=== PATIENT | male | born 1950 | race Caucasian/White ===

== ENCOUNTER 2025-09-17 08:49 | Observation (INO) | payer OTHER ==
[2025-09-13 11:59] LABS: IMMATURE GRANULOCYTE ABSOLUTE 0.02 K/uL (0-1); NUCLEATED RED BLOOD CELLS 0.0 % (0.0-0.19); PLATELET COUNT (AUTO) 218 K/uL (130-400); RED BLOOD CELL COUNT(AUTO) 5.17 MIL/uL (4.50-6.20); RED CELL DISTRIBUTION WIDTH 12.6 % (11.0-15.5); WHITE BLOOD COUNT (AUTO) 5.8 K/uL (4.8-10.8)
[2025-09-13 12:09] LABS: APPEARANCE,URINE CLEAR (CLEAR); GLUCOSE, URINE (UA) >=1000 mg/dL (NEGATIVE); LEUKOCYTE ESTERASE ,URINE NEGATIVE Leu/uL (NEGATIVE); NITRATE,URINE NEGATIVE (NEGATIVE); OCCULT BLOOD,URINE NEGATIVE (NEGATIVE)
[2025-09-13 12:15] LABS: ADD UA MICROSCOPIC YES
--- NOTE | 2025-09-13 12:20 | NUR ---
RE: IS INITIAL IS INITIAL TEACHING DONE BY RT ELOISA DURING PREOP.
[2025-09-13 12:33] LABS: SQUAMOUS EPITHELIAL CELL,UR RARE /HPF (0-2)
[2025-09-13 17:11] VITALS: BP 106/55; PULSE 73; RESP 14; TEMP 97
[~2025-09-17] VITALS: Ht 177.8 cm; Wt 111.9 kg
[2025-09-17] VITALS (19 sets, daily range): BP systolic 105–155; BP diastolic 58–94; PULSE 52–101; RESP 14–20; TEMP 97.1–98.1; O2SAT 99
[2025-09-17] MEDS ORDERED: PROMETHAZINE HCL 25 MG/ML 1ML AMPULE IM PRN ×2 (10:30→19:00)
[2025-09-17] MEDS ORDERED: LIDOCAINE PF 100MG/5ML (2%) SYRINGE 5ML ONE (18:00)
[2025-09-17] MEDS ORDERED: MIDAZOLAM HCL 1 MG/ML 2ML VIAL ONE (18:01)
[2025-09-17] MEDS ORDERED: NEOSTIGMINE METHYLSULFATE 1MG/ML IV ONE (18:01)
[2025-09-17] MEDS ORDERED: GLYCOPYRROLATE 0.2 MG/ML 5 ML VIAL ONE (18:01)
--- NOTE | 2025-09-17 18:15 | OP ---
Operative Note: DATE OF PROCEDURE: 09/17/25 SURGEON: RUSTY MENEZES MD FULL TIME BABYSITTER: [Eve Cuadra CFA] ANESTHESIA: [General anesthesia plus regional block] ANESTHESIOLOGIST/OFFSET LITHOGRAPHIC PRESS OPERATOR: [[place] Delong CRNA] PREOPERATIVE DIAGNOSIS: [Left knee osteoarthritis] POSTOPERATIVE DIAGNOSIS: [Left knee osteoarthritis] IMPLANTS: [Biomet vanguard. Femur size 72.5 PS left. Tibia size 79 fixed cruciate. Tibial liner size 10 x 79/83 PS. Patella size 32 x 9 asymmetric] PROCEDURE: [Left total knee arthroplasty] ESTIMATED BLOOD LOSS: [100 mL] INDICATIONS: [The patient is a 75-year-old male with a history of pain to the left knee secondary to osteoarthritis that has been treated conservatively with no major improvement lately. The patient has been admitted for a total knee arthroplasty, procedure that he understood, risks, benefits and possible compli cations and agreed to sign the consent form.] DESCRIPTION OF PROCEDURE: [After adequate general anesthesia was achieved and regional block obtained the lower extremity was prepped and draped in the usual manner previous placement of the tourniquet in the proximal thigh. The extremity was then elevated and exsanguinated with an Esmarch bandage and the tourniquet inflated to 300 mmHg the Esmarch band been then removed. With the knee in flexion a longitudinal incision was then made in the anterior aspect through the skin followed by dissection of the subcutaneous tissue. A bone infusion needle was then inserted just medial to the tibial tuberosity and through this needle we injected into the bone a solution of normal saline 50 mL mixed with 500 mg of vancomycin. The needle was removed. A paramedian approach was then made with the Bovie cautery cutting through the quadriceps tendon, medial patellar retinaculum and patellar tendon retinaculum. The retropatellar tendon fat was then excised and the soft tissue elements of the tibia were elevated subperiosteally and retractors were applied medially and laterally . The anterior and posterior cruciate ligaments were resected. With the use of a drill a starting hole was made in the distal femur entering the intramedullary canal and then after removal of the drill an intramedullary guide was inserted with a 5 degree valgus block that touched the distal femur and to this the distal femoral cutting guide was then applied anteriorly and was secured to the distal femur with the use of pins. The intramedullary guide was then removed and with the use of the oscillating saw we proceeded to resect the distal femur removing the fragments and the guide. The femoral sizer was then applied distally and drill holes were made removing the sizer and the 4-in-1 cutting block was then inserted and the anterior, posterior and chamfer cuts were made removing the fragments and the block. The PS cutting guide was then inserted and the intercondylar cut was made removing the fragment and the guide. The posterior cruciate ligament retractor was then inserted posterior to the tibia and this was brought forward proceeding then to apply the external tibial alignment guide and secured the proximal cutting guide to the tibia with the use of pins. With the use of the oscillating saw the proximal cut to the tibia tibia was made. The bone fragment was removed and the trial tibia plate was chosen. At this point the menisci were removed sharply and with the use of the curved osteotome the posterior osteophytes of the femur were removed. The trial components were then inserted at the femur and tibia with a trial tibial liner bringing the knee into extension noticing that the patient had a very stable knee in flexion, extension and with valgus and varus stress. The knee was maintained in extension and the patella was then addressed proceeding to measure its thickness and then with the use of the oscillating saw we removed nine mm from the articular surface and restored the height with application of a trial component after 3 peg holes were made. The patellofemoral ligament was removed and then the patellofemoral tracking was checked noticing to be lateralized and tilted and for this reason a lateral retinacular release was performed bringing the tracking back to normal. At this moment all the components were removed, the tibia after the metaphyseal defect was created and while cement was being mixed on the back table we proceeded to irrigate the joint with antibiotic solution and then cover the entry to the femoral canal with a bone plug. Once the cement was ready we proceeded to apply it first to the tibia surface in serting the final component and then to the femoral surface and inserted the final component removing the excess cement and then applying a trial liner bringing the knee into extension for compression. Then we proceeded to irrigate the patella surface and dried it applying then bone cement and the final patellar component was inserted and was secured with application of a clamp. T he joint was irrigated with a warm diluted Betadine solution while the cement dried followed by irrigation with antibiotic solution. The trial liner was removed as well as the patellar clamp and we proceeded then to irrigate the posterior aspect of the joint to remove all the remaining debris and the final tibial liner was inserted and locked against the tibia. The range of motion was checked and noticed to be adequate with full extension and flexion, no laxity in valgus or varus stress and with adequate patellofemoral tracking. The patient had no anterior or posterior drawer. The tourniquet was then deflated and this was followed by hemostasis and the wound was then closed with approximation of the quadriceps tendon, patellar retinaculum and patellar tendon retinaculum with #1 Vicryl close stitches alternating with #1 Ethibond stitches, and closure of the subcutaneous tissue with 2-0 Monocryl inverted stitches and the skin was closed with 3-0 Monocryl subcuticularly. The wound was covered with a suction dressing followed by application of an Jerald bandage for compression and the drapes were then removed transferring the patient to the hospital bed and taken to recovery room for follow-up by anesthesia. There were no complications during the procedure.] RUSTY MENEZES MD Sep 17, 2025 18:15
[2025-09-17] MEDS ORDERED: TRANEXAMIC ACID 1000MG/10ML ONE (18:37)
[2025-09-17] MEDS ORDERED: VANCOMYCIN 500MG+NS 100ML 100 ML IV ONE (18:38)
[2025-09-17] MEDS: TRANEXAMIC ACID 1000MG/10ML IV ONE (18:38)
[2025-09-17] MEDS: VANCOMYCIN 500MG VIAL IJ ONE (18:50)
[2025-09-17] MEDS ORDERED: FERROUS FUMARATE 324 MG TABLET PO PRN (20:30)
[2025-09-17] MEDS ORDERED: CALCIUM CARB 500MG PO PRN (20:30)
[2025-09-17] MEDS: TRANEXAMIC ACID 1000MG/10ML ONE (21:11)
--- NOTE | 2025-09-17 22:00 | NUR ---
POST OP REPORT RECV'D, ARRIVED FROM PACU. VS STABLE, NEUROVASCULAR ASSESSMENT DONE. SCD'S PLACED. RATING PAIN A 5. ICE PLACED ON LT KNEE, HS MEDS TO BE GIVEN SCHEDULED TYLENOL AND CELEBREX PER MD ORDER. AT BEDSIDE. VLADIMIR DRESSING IN PLACE ALONG WITH MICHI WRAP. CLEAN/DRY AND INTACT. PT HUNGRY WILL START OFF SLOW TO PREVENT N/V, HE VERBALIZED UNDERSTANDING.
[2025-09-17] MEDS: 0.9%NACL 1000ML 1,000 ML IV ONE (22:05)
[2025-09-17] MEDS: ASPIRIN 81 MG EC TAB PO SCH (22:28)
[2025-09-17] MEDS: 0.9%NACL 1000ML 1,000 ML IV SCH (22:59)
[2025-09-18] VITALS (12 sets, daily range): BP systolic 101–163; BP diastolic 52–87; PULSE 69–112; RESP 16–20; TEMP 97.7–98.6; O2SAT 96
--- NOTE | 2025-09-18 08:13 | PN ---
Ortho postop day one. This morning the patient is awake alert and oriented. He is out of bed seated in a chair enjoying his breakfast. is present in the room. Reporting adequate pain control. No acute distress. Vital signs have remained stable. Afebrile. Voiding on his own. Laboratory results reviewed. Incentive spirometry reinforced. SCD stockings are currently present but not on since he is out of bed in a chair. He is provided a footstool and asked to alternate extension and flexion. Jerald bandage has been removed. There is ice present to the operative site. The carrie dressing is intact. Flashing green. Gastrocnemius soft nontender. Negative Homans. Distal neurovascular exam normal. He is pending physical therapy this morning. Operative findings discussed with the patient. Anticipated discharge goal is home health/PT Assessment: Status post left total knee arthroplasty. Plan: Continue Dr. Baez TKA protocol and discharge planning Vitals/Labs Vital Signs Date Time Temp Pulse Resp B/P (MAP) Pulse Ox O2 Delivery O2 Flow Rate FiO2 09/18/25 05:35 119/64 97 Nasal Cannula 2.0 09/18/25 04:00 98.1 108 18 09/17/25 23:05 32 Laboratory Tests 09/18/25 03:29 Medications Current Medications Cefazolin Sodium 2 gm STK-MED ONCE .ROUTE; Start 09/17/25 at 09:11; Stop 09/17/25 at 09:12; Status DC Sodium Chloride 1,000 ml @ As Directed STK-MED ONCE IV; Start 09/17/25 at 09:11; Stop 09/17/25 at 09:12; Status DC Ondansetron HCl 4 mg AD PRN IVP; Start 09/17/25 at 10:30; Stop 09/17/25 at 17:00; Status DC Metoclopramide HCl 10 mg AD PRN IVP; Start 09/17/25 at 10:30; Stop 09/17/25 at 17:00; Status DC Promethazine HCl 25 mg AD PRN IM; Start 09/17/25 at 10:30; Stop 09/17/25 at 17:00; Status DC Ketorolac Tromethamine 15 mg AD PRN IV; Start 09/17/25 at 10:30; Stop 09/17/25 at 17:00; Status DC Morphine Sulfate 2 mg AD PRN IVP; Start 09/17/25 at 10:30; Stop 09/17/25 at 17:00; Status DC Fentanyl Citrate 25 mcg Q5MIN PRN IVP; Start 09/17/25 at 10:30; Stop 09/17/25 at 17:00; Status DC Naloxone HCl 0.1 mg AD PRN IVP; Start 09/17/25 at 10:30; Stop 09/17/25 at 17:00; Status DC Lidocaine HCl 100 mg STK-MED ONCE .ROUTE; Start 09/17/25 at 18:00; Stop 09/17/25 at 18:01; Status DC Dexamethasone Sodium Phosphate 4 mg STK-MED ONCE .ROUTE; Start 09/17/25 at 18:01; Stop 09/17/25 at 18:01; Status DC Phenylephrine HCl 10 mg STK-MED ONCE IV; Start 09/17/25 at 18:01; Stop 09/17/25 at 18:01; Status DC Ondansetron HCl 4 mg STK-MED ONCE .ROUTE; Start 09/17/25 at 18:01; Stop 09/17/25 at 18:01; Status DC Glycopyrrolate 1 mg STK-MED ONCE .ROUTE; Start 09/17/25 at 18:01; Stop 09/17/25 at 18:01; Status DC Midazolam HCl 2 mg STK-MED ONCE .ROUTE; Start 09/17/25 at 18:01; Stop 09/17/25 at 18:01; Status DC Propofol 200 mg STK-MED ONCE IV; Start 09/17/25 at 18:01; Stop 09/17/25 at 18:01; Status DC Neostigmine Methylsulfate 10 mg STK-MED ONCE IV; Start 09/17/25 at 18:01; Stop 09/17/25 at 18:01; Status DC Rocuronium [place] 50 mg STK-MED ONCE .ROUTE; Start 09/17/25 at 18:01; Stop 09/17/25 at 18:02; Status DC Fentanyl Citrate 100 mcg STK-MED ONCE .ROUTE; Start 09/17/25 at 18:02; Stop 09/17/25 at 18:02; Status DC Ondansetron HCl 4 mg AD PRN IVP; Start 09/17/25 at 19:00; Stop 09/17/25 at 21:47; Status DC Metoclopramide HCl 10 mg AD PRN IVP; Start 09/17/25 at 19:00; Stop 09/17/25 at 21:47; Status DC Promethazine HCl 25 mg AD PRN IM; Start 09/17/25 at 19:00; Stop 09/17/25 at 21:47; Status DC Ketorolac Tromethamine 30 mg AD PRN IV; Start 09/17/25 at 19:00; Stop 09/17/25 at 21:47; Status DC Morphine Sulfate 2 mg AD PRN IVP; Start 09/17/25 at 19:00; Stop 09/17/25 at 21:47; Status DC Fentanyl Citrate 25 mcg Q5MIN PRN IVP Last administered on 09/17/25at 21:13; Start 09/17/25 at 19:00; Stop 09/17/25 at 21:47; Status DC Naloxone HCl 0.1 mg AD PRN IVP; Start 09/17/25 at 19:00; Stop 09/17/25 at 21:47; Status DC Tranexamic Acid 1,000 mg STK-MED ONCE .ROUTE; Start 09/17/25 at 18:37; Stop 09/17/25 at 18:37; Status DC Cefazolin Sodium 1 gm STK-MED ONCE .ROUTE; Start 09/17/25 at 18:38; Stop 09/17/25 at 18:38; Status DC Vancomycin HCl 100 ml @ As Directed STK-MED ONCE IV; Start 09/17/25 at 18:38; Stop 09/17/25 at 18:38; Status DC Phenylephrine HCl 10 mg STK-MED ONCE IV; Start 09/17/25 at 18:47; Stop 09/17/25 at 18:47; Status DC Rocuronium [place] 50 mg STK-MED ONCE .ROUTE; Start 09/17/25 at 19:05; Stop 09/17/25 at 19:05; Status DC Cefazolin Sodium 2 gm STK-MED ONCE IVPB Last administered on 09/17/25at 18:36; Start 09/17/25 at 18:36; Stop 09/17/25 at 19:21; Status DC Tranexamic Acid 1,000 mg STK-MED ONCE IV Last administered on 09/17/25at 18:38; Start 09/17/25 at 18:38; Stop 09/17/25 at 19:21; Status DC Vancomycin HCl 500 mg STK-MED ONCE IJ Last administered on 09/17/25at 18:50; Start 09/17/25 at 18:50; Stop 09/17/25 at 19:21; Status DC Cefazolin Sodium 3 gm STK-MED ONCE IVPB Last administered on 09/17/25at 18:48; Start 09/17/25 at 18:48; Stop 09/17/25 at 19:21; Status DC Sodium Chloride 1,000 ml @ 100 mls/hr Q10H IV; Start 09/17/25 at 20:30; Stop 09/18/25 at 20:29 Polyethylene Glycol 17 gm DAILY PO; Start 09/18/25 at 09:00; Stop 10/18/25 at 08:59 Bisacodyl 10 mg DAILY PRN RC; Start 09/20/25 at 20:30; Stop 10/20/25 at 20:29 Ketorolac Tromethamine 15 mg Q6H PRN IV; Start 09/17/25 at 20:30; Stop 09/22/25 at 20:29 Tamsulosin HCl 0.4 mg DAILY PO; Start 09/18/25 at 09:00; Stop 10/18/25 at 08:59 Ferrous Fumarate 324 mg DAILY PRN PO; Start 09/17/25 at 20:30; Stop 10/17/25 at 20:29 Ondansetron HCl 4 mg Q6H PRN IVP; Start 09/17/25 at 20:30; Stop 10/17/25 at 20:29 Calcium Carbonate 500 mg Q12H PRN PO; Start 09/17/25 at 20:30; Stop 10/17/25 at 20:29 Diphenhydramine HCl 25 mg Q6H PRN IVP; Start 09/17/25 at 20:30; Stop 10/17/25 at 20:29 Insulin Human Regular INSULIN SLIDING SCAL... ACHS SQ Last administered on 09/17/25at 22:35; Start 09/17/25 at 21:00; Stop 10/17/25 at 20:59 Cefazolin Sodium 2 gm Q8H IVP Last administered on 09/18/25at 00:54; Start 09/18/25 at 01:30; Stop 09/18/25 at 09:31 Celecoxib 200 mg BID PO Last administered on 09/17/25at 22:28; Start 09/17/25 at 21:00; Stop 10/17/25 at 20:59 Oxycodone HCl 5 mg Q4H PRN PO Last administered on 09/17/25at 23:02; Start 09/17/25 at 20:30; Stop 09/24/25 at 20:29 Oxycodone HCl 10 mg Q4H PRN PO Last administered on 09/18/25at 04:17; Start 09/17/25 at 20:30; Stop 09/24/25 at 20:29 Tramadol HCl 50 mg Q6H PRN PO; Start 09/17/25 at 20:30; Stop 09/22/25 at 20:29 Acetaminophen 1,000 mg Q8H PO Last administered on 09/18/25at 04:16; Start 09/17/25 at 20:30; Stop 10/17/25 at 20:29 Aspirin 81 mg BID PO Last administered on 09/17/25at 22:28; Start 09/17/25 at 21:00; Stop 10/17/25 at 20:59 Tranexamic Acid 1,000 mg STK-MED ONCE .ROUTE Last administered on 09/17/25at 21:11; Start 09/17/25 at 20:51; Stop 09/17/25 at 20:51; Status DC Fentanyl Citrate 100 mcg STK-MED ONCE .ROUTE; Start 09/17/25 at 21:09; Stop 09/17/25 at 21:10; Status DC Aspirin 325 mg AM PO; Start 09/18/25 at 09:00; Stop 10/18/25 at 08:59 Carvedilol 6.25 mg BID PO; Start 09/18/25 at 09:00; Stop 10/18/25 at 08:59 Empaglifozin 25 mg AM PO; Start 09/18/25 at 09:00; Stop 10/18/25 at 08:59 Metformin HCl 500 mg QID PO; Start 09/18/25 at 09:00; Stop 10/18/25 at 08:59 Sacubitril/ Valsartan 1 each BID PO; Start 09/18/25 at 09:00; Stop 10/18/25 at 08:59 Spironolactone 25 mg AM PO; Start 09/18/25 at 09:00; Stop 10/18/25 at 08:59 Glipizide 10 mg BID PO; Start 09/18/25 at 09:00; Stop 10/18/25 at 08:59 Home Med Icosapent Ethyl (Vasce... QID PO; Start 09/18/25 at 09:00; Stop 10/18/25 at 08:59 Miscellaneous Medication 25 units BIDAC PRN SQ; Start 09/17/25 at 22:30; Stop 09/17/25 at 22:53; Status DC Levothyroxine Sodium 25 mcg SYN PO Last administered on 09/18/25at 06:12; Start 09/18/25 at 06:30; Stop 10/18/25 at 06:29 Atorvastatin Calcium 40 mg HS PO; Start 09/18/25 at 21:00; Stop 10/18/25 at 20:59 Trazodone HCl 150 mg HS PO; Start 09/18/25 at 21:00; Stop 10/18/25 at 20:59 WADE ALMAZAN [facility] Sep 18, 2025 08:12
[2025-09-18] MEDS: ASPIRIN 325MG EC TAB PO SCH (08:38)
[2025-09-18] MEDS: SACUBITRIL/VALSARTAN 1 EACH TABLET PO SCH (08:38)
[2025-09-18] MEDS: SPIRONOLACTONE 25 MG TAB PO SCH (08:40)
[2025-09-18] MEDS: EMPAGLIFLOZIN 25MG TABLET PO SCH (08:41)
--- NOTE | 2025-09-18 11:30 | NUR ---
DCP CM MET WITH PATIENT THIS MORNING, INITIAL ASSESSMENT DONE. PATIENT IS INDEPENDENT PRIOR TO SURGERY, LIVES AT HOME WITH HIS . AT HOME PATIENT HAS A SHOWER CHAIR, CANE, RAISED TOILET CHAIR, CPAP, GLUCOMETER, TAKES PO AND OZEMPIC FOR DM, BPM. DENIES ANY OTHER EQUIPMENT/SERVICES. FEELS SAFE TO GO BACK HOME, STILL DRIVE, ABLE TO ASSIST WITH TRANSPORTATION AND NEEDS NECESSARY. DISCUSSED HOME W/HH FOR PT, PT ALSO MADE AWARE WILL NEED A STANDARD WALKER FOR SAFE DC HOME. PT AGREEABLE. CONSENT SIGNED [facility] FOR [facility] AND [facility]. PT ALSO VERBALIZED HIS PHYSICAL ADDRESS IS NOT SAME HIS MAILING ADDRESS ON FACE SHEET. VERIFIED PHYS ADDRESS: [address] [place] [address]. [facility] HOME W/HH AND DME ONCE APPROVED. CM TO CONTINUE TO FOLLOW UP.
--- NOTE | 2025-09-18 18:30 | NUR ---
ORTHO COORDINATOR: TEACHING REGARDING DVT AND PNEUMONIA PREVENTION. PAIN EXPECTATIONS AND PAIN MANAGEMENT. PATIENT IN BED, SPOUSE AT BEDSIDE. B SCD SLEEVES IN PLACE AND FUNCTIONING. VLADIMIR DRESSING CLEAN, DRY AND INTACT. SYSTEM FUNCTIONING, CASSETTES FLASHING GREEN. SYSTEM EXPLAINED. PATIENT RETURN DEMONSTRATED PROPER USE OF INCENTIVE SPIROMETER AND VERBALIZED PROPER FREQUENCY OF USE. RATIONALE FOR DEVICE PROVIDED. PATIENT RETURN DEMONSTRATED PROPER FOOT FLEXION AND EXTENSION EXERCISES, RATIONALE PROVIDED. PAIN MANAGEMENT STRATEGY REVIEWED. NUMERIC PAIN SCALE REVIEWED. PATIENT INFORMED HE MUST CALL OR REQUEST PAIN MEDICATIONS. PATIENT AND SPOUSE VERBALIZED UNDERSTANDING. SET EXPECTATION FOR PATIENT TO SHOWER, RATIONALE PROVIDED. PATIENT INTENDS TO DISCHARGE HOME WITH HOME HEALTH PHYSICAL THERAPY, PROCESS AND EXPECTATIONS SET. PATIENT PASSING GAS. PAIN CONTROLLED. ICE PACK PLACED TO SURGICAL KNEE.
--- NOTE | 2025-09-18 20:05 | NUR ---
BS BS 195, INSULIN NOT GIVEN SCHEDULED D/T PT GIVEN METFORMIN AND GLIPIZIDE FROM HIS HOME MEDICATION LIST. HS SNACK GIVEN.
[2025-09-19 03:40] VITALS: BP 117/61; PULSE 82; RESP 20; TEMP 98
[2025-09-19 08:00] VITALS: BP 117/58; PULSE 92; RESP 17; TEMP 98.1
[2025-09-19 08:36] VITALS: O2SAT 96
[2025-09-19 12:00] VITALS: BP 118/62; PULSE 87; RESP 17; TEMP 98.2
--- NOTE | 2025-09-19 14:30 | NUR ---
ORTHO COORDINATOR: REINFORCED TEACHING. PATIENT IN BED, SPOUSE AT BEDSIDE. B SCD SLEEVES IN PLACE AND FUNCTIONING. VLADIMIR DRESSING CLEAN, DRY AND INTACT. CASSETTE FUNCTIONING, LIGHT FLASHING GREEN. DME WALKER DELIVERED TO ROOM. PATIENT HAS HAD A BOWEL MOVEMENT. REPORT BEING READY TO DISCHARGE HOME. ENCOURAGED PATIENT TO CONTINUE INCENTIVE SPIROMETRY UNTIL ACTIVITY LEVEL REACHES PRESURGICAL LEVEL, TO CONTINUE PREMEDICATING PRIOR TO PHYSICAL THERAPY SESSIONS AND PERIODS OF HIGH ACTIVITY, TO HYDRATE AND CONTINUE FOOT FLEXION AND EXTENSION EXERCISES. PATIENT AND SPOUSE VERBALIZED UNDERSTANDING TO ALL INSTRUCTIONS. NO ADDITIONAL QUESTIONS OR CONCERNS AT THIS TIME.
[2025-09-19 16:00] VITALS: BP 130/62; PULSE 92; RESP 18; TEMP 97.2
--- NOTE | 2025-09-19 16:02 | DS ---
DISCHARGE SUMMARY [Date of admission: 09/17/2025 Date of discharge: 09/19/2025 Final diagnosis: Left Knee osteoarthritis Surgical procedures: Left total Knee arthroplasty on 09/17/2025 Summary of History and Physical: The patient is a 75 year-old male with history of severe arthrosis to the left knee that has been present for several years and has been treated conservatively with no longer adequate response to treatment. The patient is being admitted for total knee arthroplasty. Previous medical history: Diabetes, hypertension, heart disease. Previous surgical history: Back surgery x2. Skin biopsy. Cyst removal. Achilles tendon repair. Implant to defibrillator. Family history: Hypertension Social history: Negative for use of tobacco or alcohol. Allergies: NKDA. Review of system: Negative on admission Hospital course: The patient was admitted and taken to the operating room for a total knee arthroplasty, procedure that went uneventful. Postoperatively the patient remained hemodynamically stable and afebrile. The patient received antibiotic and anticoagulation prophylaxis as per protocol. The patient was evaluated by physical therapy and started rehabilitation treatment with ambulation with the use of walker, weightbearing as tolerated, range of motion exercises and bed transfers. The patient was also evaluated by case management and arrangements were made for discharge. The patient tolerated diet well. On postop day #2 all the arrangements were completed and the patient was dismissed. Condition on discharge: Good Disposition: The patient will be dismissed home with home health . Follow-up will be done at the office in 3 weeks. The patient is to continue with physical therapy and rehabilitation at home and be ambulatory with the use of a walker, weightbearing as tolerated. Continue taking pain medication as instructed as well as anticoagulation prophylaxis. Continue with home medications also as instructed and continue with pre admission diet.] ] RUSTY MENEZES MD Sep 19, 2025 16:02
--- NOTE | 2025-09-19 16:26 | NUR ---
CALLED [facility] FOR REPORT. SPOKE TO LULY BONILLA.
--- NOTE | 2025-09-19 16:38 | NUR ---
PATIENT WAS DISCHARGED. PATIENT WAS EDUCATED ON WHAT TO LOOK FOR FOR S/S OF INFECTION. WHEN TO REACH OUT TO DR. MENEZES OFFICE IF NEEDING PAIN MEDICATIONS. DRESSING CHANGE TO BE DONE ON SEP 24 AND DAILY OR PRN AFTER FIRST REMOVAL. PATIENT VERBALIZED UNDERSTANDING. IV WAS REMOVED WITHOUT COMPLICATIONS. NO OTHER NEEDS VERBALIZED AT THIS TIME.
== END 2025-09-19 16:38 | disposition home health service (06) ==
LOC: DAH 08:49 → DAHIP 08:50 → DAH 08:50 → 4DH 22:13
PROVIDERS: ADMIT Orthopaedic Surgery; ATTEND Orthopaedic Surgery
DX: M17.12 Unilateral primary osteoarthritis, left knee (principal); I10 Essential (primary) hypertension; E11.9 Type 2 diabetes mellitus without complications; M25.562 Pain in left knee; E66.9 Obesity, unspecified; Z68.35 Body mass index [BMI] 35.0-35.9, adult; Z79.899 Other long term (current) drug therapy; Z98.890 Other specified postprocedural states
CPT/HCPCS: 85025; 87086; 81001; 36415 ×2; 87641; 27447; 64447; 82948 ×9; 88311; 88304; 96374; 96376; 85014; 85018; 97161; 97116 ×4; 97530 ×4; G0378 ×44; A4663; J7120; A4649 ×3; A4600; J0690 ×6; J3010 ×2; J3490 ×6; J7030; J2003; J2250; J2704; J2405; J2710; J1100; J2371 ×2; J3373 ×2; J1815 ×4; A9272; A4930 ×2; C1713; C1776; A5120; A4215; A4223 ×2; A4213; A4222; A4221; A4216